=== PATIENT | male | born 1975 | race Two or more races ===

== ENCOUNTER 2022-08-10 19:07 | Emergency (ER) | payer OTHER ==
[~2022-08-10] VITALS: Ht 177.8 cm; Wt 77.1 kg
[2022-08-10] MEDS ORDERED: BIKTARVY 50-201 EACH PO (19:27)
[2022-08-10] MEDS ORDERED: METHOTREXATE2.5 MG PO (19:28)
== END 2022-08-11 00:12 | disposition home or self-care (01) ==
LOC: ER 19:07
DX: K52.9 Noninfective gastroenteritis and colitis, unspecified (principal)